=== PATIENT | female | born 1950 | race Caucasian/White ===

== ENCOUNTER → 2016-09-16 | Outpatient (CLI) | payer MEDICARE ==
[~2016-09-16] MED LIST: BARIUM SULFATE 135 ML (E-Z HD) PO ONE
--- NOTE | 2016-09-16 13:48 | RADRPT ---
PROCEDURE: Video-fluoroscopy swallowing study. CLINICAL INDICATION: Dysphagia. TECHNIQUE: Fluoroscopic guided video swallowing study was done in conjunction with the speech ther apist. The study was confined to the oral, pharyngeal, and cervical phases of the swallowing mechani sm. 1.3 minutes of fluoroscopy time was used. COMPARISON: No prior study is available for comparison. FINDINGS: There is no aspiration during swallowing. 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 A limited AP view of the esophagus is normal. IMPRESSION: 1. 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 2. No aspiration during swallowing. 3. Please refer to the speech therapist's recommendations for future feedings. RPTAT: QQ .Gustavo Pacheco MD, Date Time Electronically viewed and signed by .Gustavo Pacheco MD, on 09/16/2016 13:48 .R/
== END | disposition home or self-care (01) ==
LOC: RAD 12:08
PROVIDERS: ATTEND Otolaryngology
DX: R13.10 Dysphagia, unspecified (principal)
CPT/HCPCS: 74230; 92611; G8996; G8997; G8998